=== PATIENT | male | born 1970 | race African-American/Black ===

== ENCOUNTER 2024-12-05 07:19 | Inpatient (IN) | payer OTHER, MEDICAID ==
[2024-12-05] VITALS (13 sets, daily range): BP systolic 166–214; BP diastolic 84–114; PULSE 70–87; RESP 18–30; TEMP 36.4–36.9; O2SAT 97–100
[~2024-12-05] VITALS: Ht 175.3 cm; Wt 83.5 kg
[2024-12-05] MEDS: HYDRALAZINE 20MG/ML VIAL IV ONE (08:42)
[2024-12-05] MEDS: ONDANSETRON HCL 4MG/2ML INJ IV ONE (08:43)
[2024-12-05] MEDS: SODIUM CHLORIDE 0.9% 500 ML IV ONE (08:50)
[2024-12-05 08:55] LABS: BASOPHILS % 1.1 % (0.0-2.0); DIFFERENTIAL COMMENT 0; HEMOGLOBIN. 10.7 g/dL (14.0-18.0); LYMPHOCYTES % 8.2 % (20.0-50.0); MEAN CORPUSCULAR HEMOGLOBIN 27.1 pg (28.0-32.0); MEAN CORPUSCULAR HGB CONC 34.6 g/dL (31.0-37.0); MEAN CORPUSCULAR VOLUME 78.3 fL (80.0-94.0); MEAN PLATELET VOLUME 9.1 fl (7.4-10.4); MONOCYTES % 5.3 % (2.0-8.0); NEUTROPHILS % 74.4 % (40.0-76.0); PLATELET 126 x1000/uL (130-400); RED BLOOD CELL COUNT 3.96 mill/uL (4.7-6.1); RED CELL DISTRIBUTION WIDTH 17.3 % (11.6-14.6); WHITE BLOOD COUNT 7.7 x1000/uL (4.5-11.0)
[2024-12-05 09:03] LABS: CHLORIDE 100 mEq/L (98-107); POTASSIUM 5.8 mEq/L (3.5-5.1); SODIUM 138 mEq/L (136-145)
[2024-12-05 09:04] LABS: CARBON DIOXIDE 27 mEq/L (21-32)
[2024-12-05 09:05] LABS: CALCIUM 10.3 mg/dL (8.7-10.4)
[2024-12-05] MEDS ORDERED: FUROSEMIDE 100MG/10ML VIAL IV STA (09:08)
[2024-12-05 09:09] LABS: GLUCOSE 94 mg/dL (70-105); UREA NITROGEN BLOOD 51 mg/dL (9-23)
[2024-12-05 09:10] LABS: TROPONIN I HIGH SENSITIVITY 45 ng/L (3.0-53)
[2024-12-05] MEDS ORDERED: AZITHROMYCIN 500MG/250ML 250 ML IV STA (09:11)
[2024-12-05] MEDS ORDERED: ALBUTEROL (0.083%) 2.5MG/3ML NEB HHN ONE (09:15)
[2024-12-05] MEDS ORDERED: CALCIUM CHLORIDE 1GM/10ML SYR IV ONE (09:15)
[2024-12-05] MEDS ORDERED: INSULIN REGULAR (HUMULIN R) 1000UNITS/10ML VIAL IV ONE (09:15)
[2024-12-05] MEDS ORDERED: CEFTRIAXONE 1GM/50ML 50 ML IV SCH (09:15)
[2024-12-05] MEDS ORDERED: DEXTROSE 50% WATER 50ML SYRINGE IV ONE (09:15)
[2024-12-05] MEDS ORDERED: SODIUM BICARBONATE 8.4% 50MEQ/50ML SYR IV ONE (09:15)
[2024-12-05] MEDS ORDERED: FUROSEMIDE 40MG/4ML VIAL IV SCH (09:30)
[2024-12-05 09:52] LABS: CREATININE 12.4 mg/dL (0.6-1.3)
[2024-12-05] MEDS ORDERED: NIFE90TA60 MT (12:46)
[2024-12-05] MEDS ORDERED: CARV25TA47 PO (12:46)
[2024-12-05] MEDS ORDERED: MINO10TA PO (12:46)
[2024-12-05] MEDS ORDERED: DOCUSATE SODIUM 100MG CAPSULE PO PRN (13:30)
[2024-12-05] MEDS ORDERED: IPRATROPIUM/ALBUTEROL 0.5-3(2.5)MG/3ML NEB HHN PRN (13:30)
[2024-12-05] MEDS ORDERED: ACETAMINOPHEN 325MG TABLET PO PRN ×2 (13:30)
[2024-12-05] MEDS: CLONIDINE 0.1MG TABLET PO PRN (13:50)
[2024-12-05 16:49] LABS: HEPATITIS B SURFACE ANTIGEN NEGATIVE (Negative)
[2024-12-05 17:09] LABS: HEPATITIS A AB IGM NEGATIVE (Negative)
[2024-12-05 17:10] LABS: HEPATITIS B CORE AB IGM NEGATIVE (Negative)
[2024-12-05 17:11] LABS: HEPATITIS C AB NON REACTIVE (Neg) (Negative)
[2024-12-05] MEDS: NIFEDIPINE XL 90MG TAB PO SCH (17:55)
[2024-12-05] MEDS: MINOXIDIL 10MG TABLET PO SCH (17:55)
[2024-12-05] MEDS: CARVEDILOL 12.5MG TABLET PO SCH (20:59)
[2024-12-06] VITALS (15 sets, daily range): BP systolic 117–156; BP diastolic 63–89; PULSE 67–84; RESP 18–20; TEMP 36.4–37.2; O2SAT 95–100
[2024-12-06 06:06] LABS: BASOPHILS % 0.7 % (0.0-2.0); DIFFERENTIAL COMMENT 0; HEMATOCRIT. 31.8 % (42.0-52.0); HEMOGLOBIN. 10.7 g/dL (14.0-18.0); LYMPHOCYTES % 11.3 % (20.0-50.0); MEAN CORPUSCULAR HEMOGLOBIN 26.4 pg (28.0-32.0); MEAN CORPUSCULAR HGB CONC 33.6 g/dL (31.0-37.0); MEAN CORPUSCULAR VOLUME 78.5 fL (80.0-94.0); MEAN PLATELET VOLUME 9.2 fl (7.4-10.4); MONOCYTES % 6.8 % (2.0-8.0); NEUTROPHILS % 72.2 % (40.0-76.0); PLATELET 118 x1000/uL (130-400); RED BLOOD CELL COUNT 4.05 mill/uL (4.7-6.1); RED CELL DISTRIBUTION WIDTH 17.4 % (11.6-14.6); WHITE BLOOD COUNT 5.8 x1000/uL (4.5-11.0)
[2024-12-06 06:24] LABS: CHLORIDE 99 mEq/L (98-107); POTASSIUM 5.3 mEq/L (3.5-5.1); SODIUM 138 mEq/L (136-145)
[2024-12-06 06:25] LABS: CALCIUM 9.8 mg/dL (8.7-10.4); CARBON DIOXIDE 27 mEq/L (21-32)
[2024-12-06 06:30] LABS: GLUCOSE 150 mg/dL (70-105); UREA NITROGEN BLOOD 52 mg/dL (9-23)
[2024-12-06 06:31] LABS: ALANINE AMINOTRANSFERASE < 7 IU/L (10-49)
[2024-12-06 06:32] LABS: ALBUMIN 3.7 g/dL (3.2-4.8); BILIRUBIN TOTAL 0.6 mg/dL (0.1-1.0); PROTEIN TOTAL 7.4 g/dL (6.0-8.3)
[2024-12-06 06:48] LABS: ASPARTATE AMINOTRANSFERASE < 8 IU/L (<34)
[2024-12-06] MEDS: ONDANSETRON HCL 4MG/2ML INJ IV PRN (07:26)
[2024-12-06] MEDS ORDERED: ALBUTEROL (0.5%) 2.5MG/0.5ML NEB HHN NR (09:15)
[2024-12-06] MEDS: SODIUM ZIRCONIUM CYCLOSILICATE 10GM/PACKET PO NR (09:44)
[2024-12-07] VITALS: BP 132/69; PULSE 81; RESP 18; TEMP 36.8; O2SAT 100
[2024-12-07 04:00] VITALS: BP 145/76; PULSE 75; RESP 20; TEMP 36.8; O2SAT 99
[2024-12-07 08:00] VITALS: BP 158/87; PULSE 78; RESP 20; TEMP 37; O2SAT 96
[2024-12-07 09:59] LABS: HEMOGLOBIN. 10.7 g/dL (14.0-18.0); MEAN CORPUSCULAR HEMOGLOBIN 26.6 pg (28.0-32.0); MEAN CORPUSCULAR HGB CONC 33.5 g/dL (31.0-37.0); MEAN CORPUSCULAR VOLUME 79.4 fL (80.0-94.0); MEAN PLATELET VOLUME 9.4 fl (7.4-10.4); PLATELET 123 x1000/uL (130-400); RED BLOOD CELL COUNT 4.03 mill/uL (4.7-6.1); RED CELL DISTRIBUTION WIDTH 17.2 % (11.6-14.6)
[2024-12-07 10:06] LABS: DIFFERENTIAL COMMENT 1
[2024-12-07 10:11] LABS: CALCIUM 9.4 mg/dL (8.7-10.4); POTASSIUM 4.9 mEq/L (3.5-5.1)
[2024-12-07 10:45] LABS: CREATININE 9.6 mg/dL (0.6-1.3)
[2024-12-07 12:00] VITALS: BP 128/83; PULSE 75; RESP 18; TEMP 36.6; O2SAT 97
[2024-12-07 14:18] VITALS: BP 128/83; PULSE 86; TEMP 98.2; O2SAT 97
[2024-12-07 16:32] LABS: ANISOCYTOSIS 1+; MICROCYTOSIS 1+; PLATELET ESTIMATE DECREASED
== END 2024-12-07 14:35 | disposition home or self-care (01) | DRG 640 ==
LOC: ER 07:19 → 7WST 08:38 → EDBEDREQ 08:43 → EDBEDREQTM 08:43
PROVIDERS: ADMIT Internal Medicine; ATTEND Internal Medicine
PROC: 5A1D70Z Performance of Urinary Filtration, Intermittent, Less than 6 Hours Per Day (ICD-10-PCS; principal; 2024-12-05)
PROC: 5A1D70Z Performance of Urinary Filtration, Intermittent, Less than 6 Hours Per Day (ICD-10-PCS; 2024-12-06)
DX: E87.5 Hyperkalemia (principal); J96.00 Acute respiratory failure, unspecified whether with hypoxia or hypercapnia; N18.6 End stage renal disease; I24.89 Other forms of acute ischemic heart disease; I16.1 Hypertensive emergency; I13.2 Hypertensive heart and chronic kidney disease with heart failure and with stage 5 chronic kidney disease, or end stage renal disease; D69.6 Thrombocytopenia, unspecified; I50.9 Heart failure, unspecified; Z99.2 Dependence on renal dialysis; D64.9 Anemia, unspecified
CPT/HCPCS: 36415; 71045; 80048; 80053; 83880; 84145; 84484; 85025; 86705; 86709; 87340; 90935; 93005; 99291; J0360; J1940; J2405; J7040